=== PATIENT | male | born 1970 | race Caucasian/White ===

== ENCOUNTER 2024-06-03 11:26 | Outpatient (REF) | payer OTHER, SELFPAY ==
[2024-06-03 13:20] LABS: MANUAL DIFF FLAG NO
[2024-06-03 13:35] LABS: Basophils Absolute Auto 0.1 X10*3/uL (0.0-0.2); Basophils Percent Auto 1.5 % (0-2); Eosinophils Absolute Auto 0.1 X10*3/uL (0.0-0.4); Eosinophils Percent Auto 1.5 % (0-4); Imm Gran Abs Auto 0.01 X10*3/uL (0.00-0.03); Imm Gran Pct Auto 0.2 % (0.0-0.4); Lymphocytes Absolute Auto 1.3 X10*3/uL (1.2-4.9); Lymphocytes Percent Auto 32.3 % (20-40); Mean Corpuscular Hemoglobin 31.6 pg (27.0-33.0); Mean Corpuscular Volume 92.9 fL (80.0-98.0); Mean Platelet Volume 11.2 fL (9.4-12.4); Monocytes Absolute Auto 0.5 X10*3/uL (0.1-1.2); Monocytes Percent Auto 12.1 % (2-11); Neutrophils Absolute Auto 2.1 x10*3/uL (2.0-8.3); Neutrophils Percent Auto 52.4 % (45-73); Platelet Count 228 X10*3/uL (160-400); Red Blood Count 5.06 X10*6/uL (4.60-5.80); Red Cell Distribution Width 12.7 % (11.0-16.0); White Blood Count 4.1 X10*3/uL (4.8-10.8)
[2024-06-03 13:47] LABS: Cholesterol 181 mg/dL (<200); HDL Cholesterol 68 mg/dL (>40); Iron 91 mcg/dL (45-160); LDL Cholesterol Calculated 103 mg/dL (<100); Percent Iron Saturation 28 % (15-50); Total Iron Binding Capacity 320 mcg/dL (228-428); Triglycerides 50 mg/dL (<150); Unsaturated Iron Binding 229 ug/dL
[2024-06-03 13:49] LABS: Estimated Average Glucose 105 mg/dL; Hemoglobin A1C 145.2172 umol/L; Hemoglobin A1c % 5.3 % (<6.0); Total Hemoglobin (HGBA1C) 4191.1231 umol/L
--- OUTSIDE RECORDS SUMMARY | 2024-06-03 13:57 | XMS_ITS | Data Portability ---
Author Organization [facility] Home Service Address [address] [place] [address] Assessment No assessment recorded. Plan of Treatment Reminders Order Date Submit Date Provider Last Modified By Organization Details Last Modified Time Details Appointments NEW PROBLEM 15 2024 10:45A M FERMIN GAONA Not available Not available Not available Lab lipid panel, blood 2024 025 [facility] (Out[facility]), [address] [place] [address], [id number], 06/03/2024 11:27:10 hemoglobi n A1c, QN, blood 2024 025 [facility] (Outpatient), [address] [place] [address], [id number], 06/03/2024 11:22:25 CMP, serum or plasma 2024 025 [facility] (Outpatient), [address] [place] [address], [id number], 06/03/2024 11:27:10 iron + TIBC + ferritin, serum 2024 025 [facility] (Outpatient), [address] [place] [address], [id number], 06/03/2024 11:27:10 CBC w/ auto diff 2024 025 [facility] (Outpatient), [address] [place] [address], [id number], 06/03/2024 11:27:10 PSA, serum or plasma 2022 023 [facility] (Out[facility]), [address] [place] [address], [id number], 03/15/2023 13:50:36 CMP, serum or plasma 2022 023 [facility] (Out[facility]), [address] [place] [address], [id number], 03/15/2023 13:50:35 CBC w/ auto diff 2022 [facility] (Out[facility]), [address] [place] [address], [id number], 03/15/2023 13:50:35 lipid panel, blood 2022 023 [facility] (Out[facility]), [address] [place] [address], [id number], 03/15/2023 13:50:36 hemoglobi n A1c, QN, blood 2022 023 [facility] (Out[facility]), [address] [place] [address], [id number], 03/15/2023 13:50:36 vitamin D, 25-hydrox y, total, serum 2022 023 [facility] (Out[facility]), [address] [place] [address], [id number], 03/15/2023 13:50:36 TSH + free T4, serum 2022 [facility] ([facility]), [address] [place] [address], [id number], 03/15/2023 13:50:35 Referral gastroent erologist referral 2022 023 [email or web address], [address], [place], [address], 03/18/2023 08:53:03 Procedures None recorded. Surgeries None recorded. Imaging exercise stress test 2024 025 [facility], [address] [place] [address], [id number], 06/03/2024 12:37:41 US, duplex, carotid artery 2024 025 [facility], [address] [place], [address], 06/03/2024 12:37:40 MR, angiogram , brain, w/o contrast 2024 025 [facility], [address] [place], [address], 06/03/2024 12:37:41 US, abdomen, limited 2022 023 [email or web address] Not available 03/18/2023 08:52:55 Medication Orders None recorded. Patient TargetsNo targets recorded. Patient InstructionsNo instructions recorded. 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 3 13:40:29 Lumbago with sciatica 911524187 Active 2022 FERMIN GAONA [address] [place], [address], [place] [facility] 3 13:43:07 Subconjun ctival hemorrhag e of left eye 057692202578 107 Active 2024 FERMIN GAONA [address] [place], [address], [facility] 5 11:13:32 Hypertens jean disorder 27224608 Active 2024 FERMIN GAONA [address] [place], [address], [facility] 5 11:14:34 Atypical chest pain 056688753 Active 2024 FERMIN GAONA [address] [place], [address], [facility] 5 11:18:42 Hypertens jean retinopat hy 7169929 Active 2024 FERMIN GAONA [address] [place], [address], [facility] 5 11:20:13 Problem Notes None recorded. 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 Procedure Notes None recorded. Medical Equipment None Reported. Allergies No known drug allergies Medications Name Sig Start Date Stop Date Status Note LastModified by Organization Details LastModified Time triamcinolone acetonide 0.1 % topical cream active Not Available Not Availabl e Not Available multivitamin active Not Available Not Available Not Available Vitals Date Recorded Body height Body mass index (BMI) Body weight Heart rate Oxygen saturation Oxygen saturation in Arterial blood by Pulse oximetry Systolic blood pressure Diastolic blood pressure Provider Name and Address Organization Details Last Updated DateTime 3 175.26 cm 28.7 kg/m2 41047 g 65 /min 99 % 99 % 152 mm[Hg] 82 mm[Hg] Chrissy Vann [facility] 3 13:30:52 Date Recorded Body height Body mass index (BMI) Body weight Heart rate Oxygen saturation Oxygen saturation in Arterial blood by Pulse oximetry Systolic blood pressure Diastolic blood pressure Provider Name and Address Organization Details Last Updated DateTime 173.99 cm 28.8 kg/m2 08702.7 4 g 58 /min 99 % 99 % 126 mm[Hg] 76 mm[Hg] Hunter Maryuri [facility] 10:53:17 Social History Question Answer Notes LastModified by Organizat ion Details LastModified Time Tobacco Smoking Status Never Smoker Chrissy Vann susi [facility] 03/15/2023 13:29:27 What Was The Date Of Your Most Recent Tobacco Screening? 06/03/2024 [email or web address] Information not available 06/03/2024 Sex: Unknown Functional Status None recorded. Mental Status None recorded. Family History Nothing Reported. Medical History No medical history recorded. Past Encounters Encounter ID Performer Location Encounter Start Date Encounter Closed Date Diagnosis/Indication Diagnosis SNOMED-CT Code Diagnosis ICD10 Code Diagnosis Note [id number] FERMIN GAONA [facility] [address], [place] [address] 03/15/2023 13:23:38 03/18/2023 08:26:45 Right inguinal hernia 278799797 K40.90 will set up with abdomen US, for hernia confirmati on Lumbago with sciatica 20 4941761 M54.41 stable Screening for malignant neoplasm of prostate 965211136 Z12.5 will set up with screening Screening for malignant neoplasm of colon 844096447 Z12.11 will set up with GI for colonoscop y Adult heal th examination 006878592 Z00.00 [facility] work [id number] FERMIN GAONA [facility] [address], [place] [address] 06/03/2024 10:29:04 06/03/2024 12:37:40 Subconjunctival hemorrhage of left eye 1346973259 05701 H11.32 set up with lab work Hypertensive disorder 38 475327 I10 agreed to lab work Atypical chest pain 1025 23334 R07.89 will set repeat stress test Hypertensi ve retinopathy 6039390 H35.032 note in chart Health Concerns Section Related Observation LastModified by Organization Detai ls LastModified Time None Recorded Concern Status LastModified by Organization Details LastModified Time None Recorded Advance Directives Directive None Recorded Payers Encounter Date Sequence Insurance Name Policy Number Policy Whiting Covered Member ID Whiting Member ID Guarantor Name 03/15/2023 1 ED [facility] [id number] Jose Barron [id number] Jose Barron 06/03/2024 1 ED [facility] [id number] Jose Barron [id number] Jose Barron Notes Date Note Type Note Provider Name and Address Organization Details Recorded Time 3 text/html re-establish patient appt the patient has been having possible hernia painR side, inguinal pain, the patient has discomfort with straining some back in the right buttockno electrical sensation or radiation gets a sharp pain occasionally which shoots done the right legthe patient states stretching helpsso warm ups tend to help prevent pain after activity two left knee replacementsbad anklessome bilateral shoulder pain (L>R) discussed Social h/xdiscussed family h/x needs colonoscopyoverdue for blood work will set up with US for hernia will set up for PSA screening everything else is good, no other concerns FERMIN GAONA [address] [place], [address], [facility] 03/15/2023 13:52:15 5 text/html c/o burst eye vessel the patient reports that he burst blood vessels in his eyeeye doctor mentioned it was due to BP, hypertensive retinopathy BP has been great at home and in officehe lost weightvery active recommended further testing since it doesn't seem to fit the diagnosis needs lab work as well FERMIN GAONA [address] [place], [address], [facility] 06/03/2024 11:24:59
[2024-06-03 14:28] LABS: Ferritin 105 ng/mL (20-250)
== END 2024-06-03 11:27 | disposition home or self-care (01) ==
LOC: HO.MANLDS 11:26
PROVIDERS: Visit Provider Physician Assistant
DX: H11.32 Conjunctival hemorrhage, left eye (principal); I10 Essential (primary) hypertension; Z13.1 Encounter for screening for diabetes mellitus
CPT/HCPCS: 36415; 80061; 82728; 83036; 83540; 85025